=== PATIENT | female | born 1975 | race Caucasian/White ===

== ENCOUNTER 2016-11-24 06:55 | Emergency (ER) | payer BC ==
[2016-11-24] MEDS ORDERED: KETOROLAC 30 MG/ML VIAL IVP ONE (07:18)
--- NOTE | 2016-11-24 07:24 | Emergency Department Record ---
History of Present Illness - General Chief Complaint: Abdominal Pain Stated Complaint: ABDOMINAL PAIN Time Seen by Provider: 11/24/16 07:07 Source: Patient Mode of Arrival: Ambulatory Limitations: No limitations, Physical limitation - History of Present Illness Initial Comments: 40 yo female presents to ED with a CC of abdominal pain symptoms and left sided flank pain pain symptoms that began approximately 2 hours ago. Patient denies fevers, chills, or vomiting symptoms. Patient denies a history of previous symptoms, reports previous c-0sections, FLAVIO, appendectomy. Patient denies health problems other than chronic back pain. MD Complaint: Abdominal pain Onset/Timin -: Hour(s) Location: L Flank, LUQ, Other Radiation: Back, L flank Migration to: No migration Severity: Moderate Quality: Sharp, Stabbing Consistency: Constant Improves With: Nothing Worsens With: Nothing Associated Symptoms: Denies other symptoms Treatments Prior to Arrival: Antacids - Related Data LMP (females 10-50): other Patient : No Home Medications Medication Instructions Recorded Confirmed Last Taken Aspirin 1 tab PO DAILY 11/24/16 11/24/16 1 Day Ago ~11/23/16 1 Black Cohosh 1 tab PO DAILY 11/24/16 11/24/16 1 Day Ago ~11/23/16 1 Diazepam [Valium] 1 mg PO DAILY 11/24/16 11/24/16 1 Day Ago ~11/23/16 1 Fluoxetine HCl [Prozac] 3 tab PO DAILY 11/24/16 11/24/16 1 Day Ago ~11/23/16 3 Hydrocodone/Acetaminophen [[place] 1 tab PO TID 11/24/16 11/24/16 1 Day Ago 5-325 Tablet] ~11/23/16 1 Previous Rx's Medication Instructions Recorded Hyoscyamine Sulfate [Levsin-Sl] 0.25 mg SL Q6H PRN #15 tab.subl 11/24/16 Polyethylene Glycol 3350 [Miralax] 1 packet PO DAILY #30 packet 11/24/16 Allergies Allergy/AdvReac Type Severity Reaction Status Date / Time ciprofloxacin [From Cipro] Allergy Mild RASH Verified 11/24/16 07:22 Sulfa (Sulfonamide Allergy Mild RASH Verified 11/24/16 07:22 Antibiotics) Travel Screening - Travel/Exposure Within Last 30 Days Have you traveled within the last 30 days?: No - Travel/Exposure Within Last Year Have you traveled outside the [place] in the last year?: No - Additonal Travel Details Have you been exposed to anyone with a communicable illness?: No Review of Systems Constitutional: Denies: Chills, Fever, Malaise, Night sweats Eyes: Denies: Eye discharge, Eye pain ENT: Denies: Congestion, Ear pain, Epistaxis Respiratory: Denies: Cough, Dyspnea Cardiovascular: Denies: Chest pain, Dyspnea on exertion Endocrine: Denies: Fatigue, Heat or cold intolerance Gastrointestinal: Reports: Abdominal pain. Denies: Nausea, Vomiting Genitourinary: Denies: Dysuria, Frequency, Hematuria, Incontinence Musculoskeletal: Reports: Back pain. Denies: Arthralgia, Gout, Joint swelling Skin: Denies: Bruising, Change in color Neurological: Denies: Abnormal gait, Confusion, Headache, Seizure Psychiatric: Denies: Anxiety Hematological/Lymphatic: Denies: Anemia, Blood Clots Past Medical History - SOCIAL HISTORY Smoking Status: Current every day smoker Alcohol Use: None Drug Use: None - RESPIRATORY Hx Respiratory Disorders: No - CARDIOVASCULAR Hx Cardio Disorders: No - NEURO Hx Neuro Disorders: No - GI Hx GI Disorders: Yes Comment:: gerd - Hx Genitourinary Disorders: No - ENDOCRINE Hx Endocrine Disorders: No - MUSCULOSKELETAL Hx Musculoskeletal Disorders: Yes - PSYCH Hx Psych Problems: Yes Hx Depression: Yes - HEMATOLOGY/ONCOLOGY Hx Hematology/Oncology Disorders: No Family Medical History Any Significant Family History?: Yes Hx Diabetes: Father Hx Heart Disease: Father, Mother Hx HTN: Father, Mother Physical Exam - General General Appearance: Alert, Oriented x3, Cooperative, Moderate distress Limitations: No limitations - Head Head exam: Atraumatic, Normocephalic, Normal inspection Head exam detail: negative: Abrasion, Contusion, Gross's sign, General tenderness, Hematoma, Laceration - Eye Eye exam: Normal appearance. negative: Conjunctival injection, Periorbital swelling, Periorbital tenderness, Scleral icterus - ENT Ear exam: negative: Auricular hematoma, Auricular trauma Nasal Exam: negative: Active bleeding, Discharge, Dried blood, Foreign body Mouth exam: negative: Drooling, Laceration, Muffled voice, Tongue elevation - Neck Neck exam: Normal inspection. negative: Meningismus, Tenderness - Respiratory Respiratory exam: Normal lung sounds bilaterally. negative: Rales, Respiratory distress, Rhonchi, Stridor - Cardiovascular Cardiovascular Exam: Regular rate, Normal rhythm, Normal heart sounds - GI/Abdominal GI/Abdominal exam: Soft, Tenderness (TTP epigastric, LUQ, and left flank regions ). negative: Rebound, Rigid - Rectal Rectal exam: Deferred - exam: Deferred - Extremities Extremities exam: Normal inspection. negative: Calf tenderness, Pedal edema, Tenderness - Back Back exam: Reports: CVA tenderness (L) - Neurological Neurological exam: Alert, Normal gait, Oriented X3 - Psychiatric Psychiatric exam: Normal affect, Normal mood - Skin Skin exam: Normal color. negative: Abrasion Type of lesion: negative: abrasion Course Vital Signs 11/24/16 07:06 Temperature 98.0 F Pulse Rate 64 Respiratory 18 Rate Blood Pressure 106/69 Pulse Ox 99 - Reevaluation(s) Reevaluation #1: 11/24/16 08:11 Labs reviewed, WBC 12.3, labs are otherwise grossly unremarkable for an acute process. Reevaluation #2: 11/24/16 08:51 CT Abdomen and Pelvis: Moderate fecal material, (2) non-obstructing urinary calculi are present. Patient was updated on all results, reports that her symptoms are improved. Patient appears stable for discharge on Levsin for abdominal cramping symptoms as well as Miralax for probable constipation with instructions to return for any worsening of her symptoms. All questions were answered at the time of discharge, and the patient appears stable for discharge home with family. Medical Decision Making - Lab Data Result diagrams: 11/24/16 07:40 11/24/16 07:40 Disposition Disposition: Discharge Clinical Impression: Abdominal pain Qualifiers: Abdominal location: left upper quadrant Qualified Code(s): R10.12 - Left upper quadrant pain Constipation Qualifiers: Constipation type: unspecified constipation type Qualified Code(s): K59.00 - Constipation, unspecified Disposition: Home, Self-Care Condition: (2) Stable Instructions: Constipation (ED) Additional Instructions: Return to ED if your symptoms worsen or if you have any concerns. Levsin and Miralax as directed. Follow-up with your family doctor in 3-5 days as directed. Prescriptions: Hyoscyamine Sulfate [Levsin-Sl] 0.25 mg SL Q6H PRN #15 tab.subl PRN Reason: Abdominal Pain Polyethylene Glycol 3350 [Miralax] 1 packet PO DAILY #30 packet Forms: Patient Portal Access Time of Disposition: 08:58
[2016-11-24] MEDS ORDERED: 0.9 % SODIUM CHLORIDE 1000ML 1,000 ML IV SCH (07:30)
[2016-11-24 07:40] LABS: BASO % 0.4 % (0-6); EOS % 1.7 % (0-6); GRAN % 61.1 % (47-80); HEMATOCRIT 40.9 % (35.0-47.0); HEMOGLOBIN 13.1 gm/dl (11.6-16.0); LYMPH % 28.7 % (16-45); MEAN CELL VOLUME 96.9 fl (81-97); MEAN PLATELET VOLUME 8.7 fl (7.4-10.4); MONO % 8.1 % (0-9); PLATELET COUNT 336 K/uL (130-400); RED BLOOD COUNT 4.22 M/uL (3.80-5.40); WHITE BLOOD COUNT W/O DIFF 12.3 K/uL (4.2-12.2)
[2016-11-24 07:41] LABS: URINE APPEARANCE CLEAR; URINE BILIRUBIN NEGATIVE (NEGATIVE); URINE BLOOD NEGATIVE (NEGATIVE); URINE COLOR YELLOW; URINE GLUCOSE (UA) NEGATIVE (NEGATIVE); URINE KETONE NEGATIVE (NEGATIVE); URINE LEUKOCYTE ESTERASE NEGATIVE (NEGATIVE); URINE NITRITE NEGATIVE (NEGATIVE); URINE PROTEIN NEGATIVE (NEGATIVE); URINE UROBILINOGEN 0.2 E.U./dL (0.20 - 1.00)
[2016-11-24 07:44] LABS: HCG,QUALITATIVE URINE NEGATIVE (NEGATIVE)
[2016-11-24 07:56] LABS: ALB/GLOB RATIO 1.3 (1.1-1.8); ALBUMIN 3.8 gm/dL (3.5-5.0); ALKALINE PHOSPHATASE 75 U/L (38-126); ALT/SGPT 57 U/L (9-52); ANION GAP 2.3 (7-16); AST/SGOT 77 U/L (14-36); BILIRUBIN,TOTAL 0.45 mg/dL (0.2-1.3); BLOOD UREA NITROGEN 15 mg/dL (7-17); CARBON DIOXIDE 28.7 mmol/L (22-30); CREATININE 0.8 mg/dL (0.52-1.04); EST GLOMERULAR FILTRATION RATE > 60 ml/min; GLUCOSE,RANDOM 82 mg/dL (70-110); LIPASE 175 U/L (23-300); TOTAL PROTEIN 6.7 gm/dL (6.3-8.2)
--- NOTE | 2016-11-27 09:29 | CT SCAN REPORT ---
EXAM: ABDOMEN AND PELVIS CT WITHOUT IV CONTRAST HISTORY: ACUTE RIGHT LOWER QUADRANT AND LEFT LOWER QUADRANT ABDOMINAL PAIN. TECHNIQUE: Contiguous axial images from the lung bases to the symphysis pubis were obtained without IV contrast. Comparison: Abdomen and pelvis CT 10/24/13. FINDINGS: The lung bases are clear. Evaluation of the solid abdominal visceral organs is compromised due to lack of IV contrast, however, the liver, spleen, and adrenals are normal. The kidneys are symmetric in size. There are two nonobstructing calculi in the left kidney with the largest in the lower pole measuring 2 mm. No hydronephrosis or ureteral calculi. The pancreas is normal. Dependent noncalcified gallstones in the gallbladder with no adjacent inflammation. The visualized loops of small and large bowel are of normal caliber. Moderate fecal material in the colon. The appendix is not seen although there are no pericecal inflammatory changes. No free intraperitoneal fluid or adenopathy. The uterus is absent. No pelvic mass. The abdominal wall is unremarkable. No lytic or blastic lesion. Moderate to severe degenerative disk disease at L5- S1. IMPRESSION: 1. TWO NONOBSTRUCTING CALCULI IN THE LEFT KIDNEY. NO HYDRONEPHROSIS OR URETERAL CALCULI. 2. CHOLELITHIASIS WITHOUT CT EVIDENCE OF ACUTE CHOLECYSTITIS. 3. NO INTESTINAL OBSTRUCTION. THERE IS MODERATE FECAL MATERIAL THROUGHOUT THE COLON. JOB [facility]BER: [id number] [facility]
== END 2016-11-24 09:17 | disposition home or self-care (01) ==
LOC: ER 06:55
DX: K59.00 Constipation, unspecified (principal); R10.12 Left upper quadrant pain
CPT/HCPCS: 99284 ×2; 96374; 83690; 85025; 80053; 81003; 81025; 74176; J1885; J7030